=== PATIENT | female | born 1965 | race Two or more races ===

== ENCOUNTER 2020-10-06 12:50 | Outpatient (CLI) | payer MEDICAID ==
[~2020-10-06] VITALS: Ht 170.2 cm; Wt 85.4 kg
--- NOTE | 2020-10-06 14:00 | Consultation ---
DATE OF CONSULTATION: 10/06/2020 CHIEF COMPLAINT: Referral for screening colonoscopy. PAST MEDICAL HISTORY: None. PAST SURGICAL HISTORY: Neck surgery, C5-C6. MEDICATIONS: None. FAMILY HISTORY: Aunt of bone cancer. SOCIAL HISTORY: The patient denies any tobacco, alcohol, or drug abuse. ALLERGIES: No known allergies. REVIEW OF SYSTEMS: A 10-point review of systems was performed and was negative. PHYSICAL EXAMINATION: VITAL SIGNS: Temperature 97.2, blood pressure 132/85, pulse 76, respirations 20. HEENT: Normocephalic and atraumatic. Sclerae anicteric. NECK: Supple. No evidence of obvious lymphadenopathy. CARDIOVASCULAR: Regular rate and rhythm. Plus S1, S2. LUNGS: Clear to auscultation bilaterally. ABDOMEN: Positive bowel sounds. Soft and nontender. No rebound. No guarding. No peritoneal sign. EXTREMITIES: No cyanosis, no clubbing, no edema. ASSESSMENT AND PLAN: This is a 55-year-old female was referred for screening colonoscopy. The patient was given instruction for colonoscopy. Risks and benefits of procedure were explained to her. We will schedule her as soon as authorization is obtained. Bakari Walton M.D. DR: Dennis JOB#: [id number] CC:
[2020-10-08 13:30] VITALS: BP 132/85
== END 2020-10-06 14:50 | disposition home or self-care (01) ==
LOC: PAN 12:50
DX: Z00.00 Encounter for general adult medical examination without abnormal findings (principal); Z80.8 Family history of malignant neoplasm of other organs or systems
CPT/HCPCS: G0463